=== PATIENT | male | born 1995 | race African-American/Black ===

== ENCOUNTER 2020-08-20 18:34 | Emergency (ER) | payer MEDICAID, OTHER ==
[~2020-08-20] VITALS: Ht 175.3 cm; Wt 59.0 kg
[2020-08-20 21:34] VITALS: BP 108/53
== END 2020-08-20 22:18 | disposition home or self-care (01) ==
LOC: ER 18:34
DX: S69.91XA Unspecified injury of right wrist, hand and finger(s), initial encounter (principal); X58.XXXA Exposure to other specified factors, initial encounter; Y93.89 Activity, other specified; Y92.89 Other specified places as the place of occurrence of the external cause; Y99.8 Other external cause status
CPT/HCPCS: 29125